=== PATIENT | male | born 1985 | race Caucasian/White ===

== ENCOUNTER 2024-06-04 15:00 | Emergency (ER) | payer OTHER, BC ==
[~2024-06-04] VITALS: Ht 182.9 cm; Wt 93.0 kg
== END 2024-06-04 16:46 | disposition home or self-care (01) ==
LOC: ER 15:00
DX: S93.402A Sprain of unspecified ligament of left ankle, initial encounter (principal); Z88.2 Allergy status to sulfonamides; X50.1XXA Overexertion from prolonged static or awkward postures, initial encounter
CPT/HCPCS: 29515; 73610; 99283-25